=== PATIENT | male | born 1965 ===

== ENCOUNTER 2017-07-04 16:55 | Emergency (ER) | payer SELFPAY ==
[2017-07-04 17:03] VITALS: BP 125/82; PULSE 78; RESP 18; TEMP 97.9; O2SAT 98
--- NOTE | 2017-07-04 17:21 | C.PDOC ---
History Of Present Illness The patient is a 52yo male, with no past medical history, presents to ED for evaluation of chest congestion and cough for the past week. He also reports associated chest pain due to cough. Patient states the congestion is the worst in the morning and he feels as if he cannot breathe. Patient states he took Zithromax for 3 days (last dose yesterday), promethazine and flonase with no relief of his symptoms. He also reports nose congestion, persistent sneezing and mild dizziness. Patient denies any fever, chills, shortness of breath, and offers no other medical complaints. PMD: None Time Seen by Provider: 07/04/17 17:08 Chief Complaint (Nursing): Cough, Cold, Congestion History Per: Patient History/Exam Limitations: no limitations Onset/Duration Of Symptoms: Days Current Symptoms Are (Timing): Still Present Associated Symptoms: Cough, Nasal Congestion, Other (chest congestion). denies : Fever, Chills Additional History Per: Patient Past Medical History Reviewed: Historical Data, Nursing Documentation, Vital Signs Vital Signs: Last Vital Signs Temp 97.9 F 07/04/17 17:01 Pulse 78 07/04/17 17:01 Resp 18 07/04/17 17:01 BP 125/82 07/04/17 17:01 Pulse Ox 98 07/04/17 17:53 - Medical History PMH: No Chronic Diseases Other PMH: seasonal allergies Surgical History: No Surg Hx Family History: States: Diabetes, Other Other Family History: cancer - Social History Hx Tobacco Use: No Hx Alcohol Use: No Hx Substance Use: No Review Of Systems Except As Marked, All Systems Reviewed And Found Negative. Constitutional: Negative for: Fever, Chills, Weakness ENT: Positive for: Nose Congestion Cardiovascular: Positive for: Chest Pain (due to cough ), Other (chest congestion) Respiratory: Positive for: Cough. Negative for: Shortness of Breath Physical Exam - Physical Exam Appears: Non-toxic, No Acute Distress Skin: Normal Color, Warm, Dry Head: Atraumatic, Normacephalic Eye(s): bilateral: Normal Inspection, PERRL Neck: Normal ROM, Supple Chest: Symmetrical Cardiovascular: Rhythm Regular Respiratory: Normal Breath Sounds, No Wheezing Neurological/Psych: Oriented x3 ED Course And Treatment ECG: Interpreted By Me, Viewed By Me ECG Rhythm: Sinus Rhythm ECG Interpretation: Normal Rate From EC O2 Sat by Pulse Oximetry: 98 (RA) Pulse Ox Interpretation: Normal Medical Decision Making Medical Decision Making: Impression: Seasonal allergies, bronchitis Plan: -- EKG Progress: Disposition Counseled Patient/Family Regarding: Studies Performed, Diagnosis, Need For Followup - Disposition Disposition: HOME/ ROUTINE Disposition Time: 17:47 Condition: STABLE Additional Instructions: Mr. Sanchez thank you for letting us take care of you today. Return to the ER if your symptoms worsen, or if any problems. Take the medication listed below as prescribed. Follow up with your doctor in [place] next week for a re-evaluation. Prescriptions: Albuterol HFA [Ventolin HFA 90 mcg/actuation (8 g)] 2 puff IH [id number] PRN #1 inhaler PRN Reason: Cough Fexofenadine HCl [PippaNf] 1 tab PO DAILY #30 tab Instructions: Seasonal Allergies in Adults, Acute Bronchitis, Adult (DC) Forms: [employer] (Romanian) Print Language: MACANESE - POA Present On Arrival: None - Clinical Impression Clinical Impression: Seasonal allergies, Bronchitis - Scribe Statement The provider has reviewed the documentation as recorded by the Scribe (Dorothy Allison) Provider Attestation: All medical record entries made by the Scribe were at my direction and personally dictated by me. I have reviewed the chart and agree that the record accurately reflects my personal performance of the history, physical exam, medical decision making, and the department course for this patient. I have also personally directed, reviewed, and agree with the discharge instructions and disposition.
== END 2017-07-04 17:59 | disposition home or self-care (01) ==
LOC: C.ER 16:55
DX: J40 Bronchitis, not specified as acute or chronic (principal); J30.2 Other seasonal allergic rhinitis

== ENCOUNTER 2018-03-04 20:38 | Emergency (ER) | payer SELFPAY ==
[2018-03-04 20:56] VITALS: BP 123/80; PULSE 75; RESP 20; TEMP 98.2; O2SAT 100
--- NOTE | 2018-03-04 22:13 | C.PDOC ---
History Of Present Illness 52 year old male awoke today with pain to the left armpit radiating to the left arm. Patient reports the pain worsens when lifting the arm and when turning it over. Denies SOB, chest pain, palpitations, Hx of cardiac issues, or neck pain/injury. 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 Chief Complaint (Nursing): Upper Extremity Problem/Injury History Per: Patient History/Exam Limitations: no limitations Onset/Duration Of Symptoms: Hrs Current Symptoms Are (Timing): Still Present Exacerbating Factor(s): Other (Lifting arm, turning arm over) Recent travel outside of the [place]: No Past Medical History Reviewed: Historical Data, Nursing Documentation, Vital Signs Vital Signs: Last Vital Signs Temp 98.2 F 03/04/18 20:53 Pulse 75 03/04/18 20:53 Resp 20 03/04/18 20:53 BP 123/80 03/04/18 20:53 Pulse Ox 100 03/04/18 20:53 Family History: States: Diabetes, Hypertension - Social History Hx Tobacco Use: No Hx Alcohol Use: No Hx Substance Use: No - Immunization History Hx Tetanus Toxoid Vaccination: No Hx Influenza Vaccination: Yes Hx Pneumococcal Vaccination: No Review Of Systems Constitutional: Negative for: Fever, Chills Eyes: Negative for: Pain, Redness ENT: Negative for: Mouth Swelling Cardiovascular: Negative for: Chest Pain, Palpitations Respiratory: Negative for: Cough, Shortness of Breath Gastrointestinal: Negative for: Nausea, Vomiting, Diarrhea Genitourinary: Negative for: Dysuria, Hematuria Musculoskeletal: Positive for: Other (Left armpit pain radiating down left arm). Negative for: Back Pain Skin: Negative for: Rash Neurological: Negative for: Weakness, Numbness, Dizziness Physical Exam - Physical Exam Appears: Well, Non-toxic, No Acute Distress Skin: Normal Color, Warm, No Rash Head: Atraumatic, Normacephalic Eye(s): bilateral: Normal Inspection, PERRL, EOMI Neck: Normal ROM, No Midline Cervical Tenderness, No Paracervical Tenderness, Supple Chest: Symmetrical, No Tenderness Cardiovascular: Rhythm Regular Respiratory: No Accessory Muscle Use, Other (Normal inspiratory effort) Extremity: Capillary Refill (<2 seconds), Other (Reproducible tenderness with palpation of left axilla increased when lifting left arm above parallel to the floor, human service technician strength intact. No swelling or erythema to left axilla.) Pulses: Left Radial: Normal, Right Radial: Normal Neurological/Psych: Oriented x3, Normal Speech, Normal Cranial Nerves (Grossly intact), Normal Motor, Normal Sensation ED Course And Treatment ECG: Interpreted By Me, Viewed By Me ECG Rhythm: Sinus Bradycardia ECG Interpretation: Normal Rate From EC O2 Sat by Pulse Oximetry: 100 (Room air) Pulse Ox Interpretation: Normal Medical Decision Making Medical Decision Making: Pain appears to be neuropathic in origin, will do EKG but low suspicion for cardiac pathology, patient to be given pain meds and discharged to follow up with primary. 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 - Scribe Statement The provider has reviewed the documentation as recorded by the Scribjohanna Rutherford All medical record entries made by the Scribe were at my direction and personally dictated by me. I have reviewed the chart and agree that the record accurately reflects my personal performance of the history, physical exam, medical decision making, and the department course for this patient. I have also personally directed, reviewed, and agree with the discharge instructions and disposition.
--- NOTE | 2018-03-06 18:48 | CARD ---
APPROVED REPORT Date of service: 03/04/2018 EKG Measurement Heart [id number] <Conclusion> Sinus bradycardia Otherwise normal ECG
== END 2018-03-04 22:25 | disposition home or self-care (01) ==
LOC: C.ER 20:38
DX: G62.9 Polyneuropathy, unspecified (principal)